=== PATIENT | female | born 1930 | race Caucasian/White ===

== ENCOUNTER → 2017-08-31 13:45 | Outpatient (CLI) | payer MEDICARE ==
[2017-08-31 17:14] LABS: BASOPHILS 0.3 % (0-2); EOSINOPHILS 4.2 % (0-7); HEMATOCRIT 25.9 % (36.0-48.0); HEMOGLOBIN 8.4 g/dL (12-16); IMMATURE GRANULOCYTES 0.2 % (0-5); LYMPHOCYTES 18.3 % (15-50); MCH 32.6 pg (26.0-34.0); MCHC 32.4 g/dL (31.0-37.0); MCV 100.4 fL (80.0-100.0); MEAN PLATELET VOLUME 12.3 fL (7.4-10.4); MONOCYTES 4.2 % (2-11); NEUTROPHILS 72.8 % (40-80); PLATELET COUNT 97 10x3/uL (130-400); RBC 2.58 10x6/uL (4.00-5.40); RDW 20.2 % (11.5-14.5); WBC 6.2 10x3/uL (4.8-10.8)
[2017-08-31 17:47] LABS: ALBUMIN 2.4 g/dL (3.4-5.0); ANION GAP 14.5 mmol/L (8-16); BILIRUBIN - TOTAL 0.6 mg/dL (0.2-1.3); CALCIUM 7.9 mg/dL (8.5-10.1); CARBON DIOXIDE 24.6 mmol/L (21.0-32.0); CREATININE - SERUM 1.9 mg/dL (0.6-1.3); POTASSIUM - SERUM 4.1 mmol/L (3.5-5.1); PROTEIN - SERUM 5.3 g/dL (6.4-8.2)
[2017-08-31 18:43] LABS: PLATELET ESTIMATE DECREASED
== END | disposition home or self-care (01) ==
LOC: D.LABREF 13:45
PROVIDERS: Family Medicine
DX: E87.5 Hyperkalemia (principal)

== ENCOUNTER → 2017-11-12 10:42 | Outpatient (CLI) | payer MEDICARE, BC | END | disposition home or self-care (01) | LOC: D.RAD 10:42 | DX: R06.02 Shortness of breath (principal) ==